=== PATIENT | male | born 2005 | race Caucasian/White ===

== ENCOUNTER 2024-07-10 16:44 | Emergency (ER) | payer BC ==
[~2024-07-10] VITALS: Ht 177.8 cm; Wt 88.7 kg
[2024-07-10 16:51] VITALS: BP 142/85
[2024-07-10] MEDS ORDERED: Tdap Vaccine 0.5 ML SYRINGE IM ONE (17:00)
== END 2024-07-10 17:30 | disposition home or self-care (01) ==
LOC: ED 16:44
DX: S81.012A Laceration without foreign body, left knee, initial encounter (principal); Z23 Encounter for immunization; V19.9XXA Pedal cyclist (driver) (passenger) injured in unspecified traffic accident, initial encounter; Y93.55 Activity, bike riding; Y92.410 Unspecified street and highway as the place of occurrence of the external cause; Y99.8 Other external cause status
CPT/HCPCS: 90715